=== PATIENT | male | born 1990 | race Caucasian/White ===

== ENCOUNTER 2020-10-07 14:01 | Emergency (ER) | payer SELFPAY | END 2020-10-07 17:52 | disposition home or self-care (01) | LOC: ER1 14:01 | DX: S40.012A Contusion of left shoulder, initial encounter (principal); M54.2 Cervicalgia; F17.210 Nicotine dependence, cigarettes, uncomplicated; V03.90XA Pedestrian on foot injured in collision with car, pick-up truck or van, unspecified whether traffic or nontraffic accident, initial encounter; Y92.410 Unspecified street and highway as the place of occurrence of the external cause; Z53.20 Procedure and treatment not carried out because of patient's decision for unspecified reasons | CPT/HCPCS: 71111; 73030; 99283 ==

== ENCOUNTER → 2022-01-27 | Outpatient (CLI) | payer OTHER ==
[2022-01-28 08:18] LABS: CORTISOL 9.7 ug/dL (.); HBSAG SCREEN Negative (Negative)
[2022-01-28 22:09] LABS: HEPATITIS C QUANTITATION HCV Not Detected IU/mL (.)
[2022-01-29 08:18] LABS: HEPATITIS B SURF AB QUANT 19.4 mIU/mL (Immunity>9.9)
[2022-01-29 11:19] LABS: TESTOSTERONE, SERUM 91 ng/dL (264-916)
== END ==
LOC: LAB 15:07
PROVIDERS: Nurse Practitioner
DX: Z11.9 Encounter for screening for infectious and parasitic diseases, unspecified (principal); B19.20 Unspecified viral hepatitis C without hepatic coma
CPT/HCPCS: 36415; 82533; 82652; 83036; 84402; 84403; 84439; 84443; 84480; 84481; 85384; 85610; 86317; 86704; 87340; 87517; 87522; 87902

== ENCOUNTER → 2022-05-08 | Outpatient (CLI) | payer OTHER ==
[2022-05-08 15:44] LABS: HEMOGLOBIN 15.3 gm/dl (14.0-17.5); RED BLOOD COUNT 5.19 M/UL (4.20-5.50); WHITE BLOOD COUNT 9.4 K/UL (4.5-11.0)
[2022-05-08 16:06] LABS: BUN/CREATININE RATIO 12 (0-10)
[2022-05-09 08:14] LABS: CORTISOL 11.1 ug/dL (.); ESTRADIOL 17.3 pg/mL (7.6-42.6); HBSAG SCREEN Negative (Negative); HEPATITIS B SURF AB QUANT 17.6 mIU/mL (Immunity>9.9); LUTEINIZING HORMONE(LH) 1.9 mIU/mL (1.7-8.6); PROLACTIN 5.2 ng/mL (4.0-15.2)
[2022-05-09 18:11] LABS: HBV IU/ML HBV DNA not detected IU/mL (.)
[2022-05-09 22:11] LABS: THYROGLOBULIN ANTIBODY <1.0 IU/mL (0.0-0.9); THYROID PEROXIDASE (TPO) AB 12 IU/mL (0-34)
[2022-05-13 02:10] LABS: TESTOSTERONE, SERUM 146 ng/dL (264-916)
== END ==
LOC: LAB 14:07
DX: E29.1 Testicular hypofunction (principal); E03.9 Hypothyroidism, unspecified; B18.2 Chronic viral hepatitis C
CPT/HCPCS: 36415; 80053; 82024; 82533; 82670; 82728; 83002; 83540; 83550; 84146; 84153; 84270; 84402; 84403; 84439; 84443; 84481; 85027; 86317; 86376; 86707; 86800; 87340; 87517; 87522